=== PATIENT | male | born 1975 | race African-American/Black ===

== ENCOUNTER 2020-01-04 09:11 | Emergency (ER) | payer SELFPAY ==
[~2020-01-04] VITALS: Ht 180.3 cm; Wt 109.1 kg
[2020-01-04 09:18] VITALS: Ht 180.3 cm; Wt 109.1 kg
[2020-01-04] MEDS ORDERED: CYCLOBENZAPRINE10 MG PO (10:18)
[2020-01-04] MEDS ORDERED: VOLTAREN75 MG PO (10:18)
[2020-01-04 11:04] VITALS: BP 148/89
== END 2020-01-04 11:05 | disposition home or self-care (01) ==
LOC: D.ER 09:11
DX: M54.5 Low back pain (principal); M62.838 Other muscle spasm

== ENCOUNTER 2020-06-06 15:12 | Emergency (ER) | payer MEDICAID ==
[~2020-06-06] VITALS: Ht 180.3 cm; Wt 107.3 kg
[~2020-06-06 15:12] MED LIST: CYCLOBENZAPRINE10 MG PO; VOLTAREN75 MG PO
[2020-06-06 15:18] VITALS: BP 159/101; Ht 180.3 cm; Wt 107.3 kg
[2020-06-06] MEDS ORDERED: TORADOL10 MG PO (16:44)
[2020-06-06] MEDS ORDERED: METHOCARBAMOL500 MG PO (16:44)
== END 2020-06-06 17:01 | disposition home or self-care (01) ==
LOC: D.ER 15:12
DX: S39.012A Strain of muscle, fascia and tendon of lower back, initial encounter (principal); V89.2XXA Person injured in unspecified motor-vehicle accident, traffic, initial encounter; Y93.9 Activity, unspecified; Y92.9 Unspecified place or not applicable